=== PATIENT | female | born 1960 | race Caucasian/White ===

== ENCOUNTER 2017-12-15 07:02 | Day surgery (SDC) | payer MEDICAID ==
[~2017-12-15 07:02] MED LIST: Midazolam 1 MG/ML 2 ML SDV ONE; Propofol 200 MG/20 ML SDV ONE; fentaNYL 100 MCG/2 ML SDV ONE
[2017-12-15] MEDS ORDERED: Dextrose 5%-Lactated Ringers 1,000 ML IV SCH (07:30)
[2017-12-15] MEDS ORDERED: Glycopyrrolate 0.2 MG/ML 2 ML SDV IVPUSH ONE (08:30)
[2017-12-15] MEDS ORDERED: Pantoprazole 40 MG Vial IVPUSH ONE (09:50)
--- NOTE | 2017-12-19 11:29 | OR ---
DATE OF PROCEDURE: 12/15/2017 PREOPERATIVE DIAGNOSES: Epigastric pain and heartburn. POSTOPERATIVE DIAGNOSES: Moderate hiatal hernia with active gastroesophageal reflux disease. OPERATIVE PROCEDURE: Esophagogastroduodenoscopy with: 1. Biopsies of esophagogastric junction for histologic evaluation. 2. Biopsies of antrum for CLOtest. ANESTHESIA: IV sedation. INDICATION FOR PROCEDURE: A 57-year-old female presenting with worsening problems with epigastric pain, especially heartburn, waking up sometimes with some bile in the throat and some ill taste. She has had some reflux for several years, but it has become recently quite a bit worse. She is presently on Zantac 300 mg a day. Plan is to proceed with an upper GI endoscopy with biopsies as indicated. Potential risks including bleeding and perforation were discussed, and the patient wishes to proceed. DETAILS OF PROCEDURE: The patient was taken to the operating room and placed in a left lateral decubitus position. IV sedation was administered, after which the upper GI endoscope was passed orally through the length of the esophagus into the stomach with retroflexion view of the fundus; thereafter through the pyloric channel and into the proximal duodenum. Findings included normal hypopharynx, larynx, upper esophageal sphincter, and esophageal body. However at the EG junction, the patient had a moderate-sized hiatal hernia measuring 2 to 3 cm and quite active gastroesophageal reflux disease. There was 1 patchy area that was ulcerated and otherwise the mucosa was quite a bit edematous and friable. There was some upward extension of the gastroesophageal junction mucosal lining consistent with possible Leavitt's esophagus. There was no stricturing or plaquing, or otherwise any evidence of neoplastic change per se. The remainder of the gastric and duodenal exams were unremarkable. At this point, biopsies were obtained from the antrum and sent for CLOtest to establish the patient's H. pylori status. Multiple biopsies from esophagogastric junction were then obtained. Minimal bleeding from the biopsy sites was seen and the procedure then concluded. Plan at this point will be to move the patient to Protonix. We will give her Protonix 40 IV in the recovery room and then 40 mg daily and we will see her back next Tuesday to discuss long-term treatment options. The patient at this age is wanting to avoid the long-term use of PPIs, might be a candidate for surgical antireflux procedure. Jer England MD /[id number]
== END 2017-12-15 10:45 | disposition home or self-care (01) ==
LOC: JP.SDS 07:02
PROVIDERS: ATTEND Surgery
DX: K21.9 Gastro-esophageal reflux disease without esophagitis (principal); K44.9 Diaphragmatic hernia without obstruction or gangrene; Z91.040 Latex allergy status
CPT/HCPCS: 43239; 87081; C9113; J2250; J2704; J3010; J7042; J3490

== ENCOUNTER 2017-12-26 05:57 | Inpatient (IN) | payer MEDICAID ==
[2017-12-26] MEDS ORDERED: Acetaminophen 500 MG Tab PO ONE (06:15)
[2017-12-26] MEDS ORDERED: Dextrose 5%-Lactated Ringers 1,000 ML IV SCH (07:00)
[2017-12-26] MEDS ORDERED: Propofol 200 MG/20 ML SDV ONE (07:07)
[2017-12-26] MEDS ORDERED: Glycopyrrolate 0.2 MG/ML 5 ML MDV ONE (07:07)
[2017-12-26] MEDS ORDERED: fentaNYL 250 MCG/5 ML SDV ONE ×2 (07:07→08:26)
[2017-12-26] MEDS ORDERED: Ondansetron 4 MG/2 ML SDV ONE (07:07)
[2017-12-26] MEDS ORDERED: Rocuronium 50 MG/5 ML Vial ONE (07:07)
[2017-12-26] MEDS ORDERED: Dexamethasone 4 MG/ML SDV ONE (07:07)
[2017-12-26] MEDS ORDERED: Neostigmine Methylsulfate 1 MG/ML 5 ML Syringe ONE (07:07)
[2017-12-26] MEDS ORDERED: Succinylcholine 200 MG/10 ML MDV ONE (07:07)
[2017-12-26] MEDS ORDERED: HYDROmorphone/Normal Saline 15 MG/30 ML PCA IV PRN (07:26)
[2017-12-26] MEDS ORDERED: Naloxone 0.4 MG/ML SDV IV PRN (07:42)
[2017-12-26] MEDS ORDERED: ceFAZolin 2 GM in Premix Bag 1 BAG IV ONE (07:45)
[2017-12-26] MEDS ORDERED: Ketamine 500 MG/5 ML MDV IV SCH (07:45)
[2017-12-26] MEDS ORDERED: Ropivacaine 32 ML, Dexamethasone 8 MG, EPINEPHrine 0.4 MG, Sodium Chloride 0.9% 45.6 ML NERVRT SCH ×4 (07:45)
[2017-12-26] MEDS ORDERED: Lactated Ringers 1,000 ML ONE (08:44)
[2017-12-26] MEDS ORDERED: hydrOXYzine HCl 100 MG/2 ML SDV IM ONE (09:45)
[2017-12-26] MEDS ORDERED: Ondansetron 4 MG/2 ML SDV IVPUSH PRN (10:42)
[2017-12-26] MEDS: Pantoprazole 40 MG Vial IV SCH (11:38)
[2017-12-26] MEDS: Acetaminophen 325 MG Tab PO SCH ×2 (12:22→17:21)
[2017-12-26] MEDS: Metoclopramide 10 MG/2 ML SDV IVPUSH SCH ×2 (12:24→17:22)
[2017-12-26] MEDS: Polyethylene Glycol 3350 Powder 17 GM Packet PO SCH (12:36)
[2017-12-26] MEDS: Docusate Sodium 100 MG Cap PO SCH (12:36)
[2017-12-26] MEDS: Dextrose 5%-Lactated Ringers 1,000 ML IV SCH ×2 (13:27→20:37)
[2017-12-26] MEDS: ceFAZolin 2 GM in Premix Bag 1 BAG IV SCH ×2 (13:27→22:50)
[2017-12-26] MEDS: cycloSPORINE Ophth Drops U/D Box of 30 EYEBOTH SCH (20:43)
[2017-12-27] MEDS: Acetaminophen 325 MG Tab PO SCH ×4 (00:47→17:51)
[2017-12-27] MEDS: Metoclopramide 10 MG/2 ML SDV IVPUSH SCH ×4 (00:48→17:51)
[2017-12-27] MEDS: Polyethylene Glycol 3350 Powder 17 GM Packet PO SCH (08:00)
[2017-12-27] MEDS: Docusate Sodium 100 MG Cap PO SCH (08:00)
[2017-12-27] MEDS: cycloSPORINE Ophth Drops U/D Box of 30 EYEBOTH SCH ×2 (08:00→20:22)
[2017-12-27] MEDS ORDERED: Dextrose 5%-Lactated Ringers 1,000 ML IV SCH (08:00)
[2017-12-27] MEDS: ceFAZolin 2 GM in Premix Bag 1 BAG IV SCH (08:24)
[2017-12-27] MEDS ORDERED: cycloSPORINE Ophth Drops U/D Box of 30 EYEBOTH SCH (09:00)
--- NOTE | 2017-12-27 11:08 | PN ---
DATE OF SERVICE: 12/27/2017 SUBJECTIVE: Cindy is postop day 1 following laparoscopic Abbey fundoplication. Her pain has been controlled. Her activity has been good. She has been up, ambulating. REVIEW OF SYSTEMS: Remainder of review of systems is negative for any pertinent positives and negatives. OBJECTIVE: GENERAL: Cindy Forman is a pleasant 57-year-old female. She is alert, orientated. Color pale. VITAL SIGNS: TPR 97.5, 72, 14, blood pressure 91/48. HEENT: Negative. NECK: Supple. HEART: Regular rate and rhythm. LUNGS: Clear. ABDOMEN: Dressings are dry and intact. Abdominal binder is on. EXTREMITIES: SCDs are on and there is no peripheral edema. ASSESSMENT: Laparoscopic Abbey fundoplication. Jer England MD, 12/27/2017. PLAN: 1. A full liquid diet. 2. Dietary consult. 3. Saline lock IV if oral intake adequate. 4. DC ROCK STAR and continuous pulse ox. 5. Tylenol 650 mg scheduled q.6 hours p.o. 6. Tramadol 50 mg q.4 hours p.r.n. pain by mouth. 7. Decrease IV to 100 mL per hour. 8. Good pulmonary toilet. 9. We will evaluate p.r.n. or in the a.m. Lois Liriano PA-C /[id number]
[2017-12-27] MEDS: Pantoprazole 40 MG Vial IV SCH (11:13)
[2017-12-27] MEDS: traMADol 50 MG Tab PO PRN ×2 (19:02→23:57)
[2017-12-28] MEDS: Metoclopramide 10 MG/2 ML SDV IVPUSH SCH ×2 (00:04→06:23)
[2017-12-28] MEDS: Acetaminophen 325 MG Tab PO SCH ×2 (00:04→06:23)
[2017-12-28] MEDS: cycloSPORINE Ophth Drops U/D Box of 30 EYEBOTH SCH (08:16)
[2017-12-28] MEDS: traMADol 50 MG Tab PO PRN (08:17)
--- NOTE | 2017-12-28 09:03 | DISCH ---
ADMISSION DIAGNOSES: 1. Gastroesophageal reflux disease refractory to medical management. 2. Bilateral dry eyes. 3. Constipation. 4. Fatigue. DISCHARGE DIAGNOSES: Laparoscopic Abbey fundoplication, repair of periesophageal diaphragmatic hernia with mesh for gastroesophageal reflux disease refractory to medical management and periesophageal diaphragmatic hernia. Date of surgery, 12/26/2017. HISTORY: Cindy Forman is a 57-year-old female who has had GERD refractory to medical management. After preoperative evaluation and discussion of possible risks and possible complications, she wished to proceed with surgical procedure. HOSPITAL COURSE: Cindy had her surgery on 12/26/2017. She had no complications. On postop day #1, she was started on a full liquid diet and changed to oral pain medication. On postop day #2, vital signs were stable. Activity was good. Pain was well managed. She received dietary instruction. She was able to be discharged to home. PHYSICAL EXAMINATION: GENERAL: Cindy Forman is a 57-year-old female. VITAL SIGNS: Height is 5 feet 4 inches. Weight is 143 pounds. TPR is 97.6, 72, 16, and blood pressure 114/62. HEENT: Negative. NECK: Supple. HEART: Regular rate and rhythm. LUNGS: Clear. ABDOMEN: Incisions look good. Abdominal binder has been on. EXTREMITIES: Without peripheral edema. DISPOSITION: Discharged to home. CONDITION: Stable and improving. FOLLOWUP APPOINTMENT: With Jer England MD, at [facility] on 01/04/2018 at 8:30 a.m. DISCHARGE MEDICATIONS: Home medications; 1. Tramadol 50 mg q.4 hours p.r.n. pain, #40. 2. Colace 100 mg oral daily. 3. Milk of magnesia 30 mL, two were sent home with the patient to take one daily p.r.n. constipation. 4. Tylenol 650 mg every 6 hours. 5. Leslie-C 500 mg one daily. 6. Calcium carbonate-vitamin D3 one daily. 7. Magnesium oxide 400 mg oral daily. 8. [place]-3 one daily. 9. Protonix 40 mg oral daily. 10.MiraLax 17 grams oral daily. 11.Zantac 150 mg twice daily. 12.Niotaze Jelly 500 mg daily. 13.B complex one daily. 14.Restasis eyedrops, one drop to both eyes twice daily. She was instructed that if the supplements are too large to swallow, that she can hold on those until feeling better or to find chewable. DISCHARGE DIET: Full liquid diet for 1 month until 01/26/2018. Drink 8 to 10 glasses of water a day. ACTIVITY: No lifting greater than 10 pounds for 2 weeks. Walk inside your home at least 6 times daily. Driving, do not drive while on pain medication. Shower/bathing, may shower. DISCHARGE INSTRUCTIONS: Notify provider if fever, nausea, or vomiting. Keep site clean and dry. Wear abdominal binder for 2 weeks and then as tolerated. Use incentive spirometer 10 times every hour while awake.
[2017-12-28] MEDS ORDERED: Magnesium Hydroxide 400 MG/5 ML Susp 30 ML Cup PO ONE (10:00)
[2017-12-28] MEDS: Docusate Sodium 100 MG Cap PO SCH (10:20)
[2017-12-28] MEDS: Polyethylene Glycol 3350 Powder 17 GM Packet PO SCH (10:20)
--- NOTE | 2018-01-03 15:37 | OR ---
DATE OF PROCEDURE: 12/26/2017 PREOPERATIVE DIAGNOSIS: Gastroesophageal reflux disease, refractory to medical management. POSTOPERATIVE DIAGNOSIS: Gastroesophageal reflux disease, refractory to medical management associated with paraesophageal diaphragmatic hernia. OPERATIVE PROCEDURE: Laparoscopic Abbey fundoplication with repair of paraesophageal diaphragmatic hernia with mesh (19956). ANESTHESIA: General. DIRECTOR OF MEDICAL EDUCATION: Lois Liriano PA-C. INDICATION FOR PROCEDURE: This is a 57-year-old female presenting with worsening gastroesophageal reflux disease that has become refractory to medical management. After preop evaluation and discussion, she wished to proceed with a Abbey fundoplication. Potential risks including bleeding, infection, problems with fundoplication complications such as dysphagia, gas bloat syndrome, disorders of gastric emptying rate with relief of reflux symptoms were reviewed, and the patient wishes to proceed. PROCEDURE IN DETAIL: The patient was taken to operating room and placed in a supine position after general endotracheal anesthesia was induced and she was converted to a lithotomy position. Covarrubias catheter was inserted and the abdomen prepped and draped. A 15 cm inferior and 5 cm left of xiphoid process, a transverse incision was made and the peritoneal cavity entered under direct vision with Optiview trocar inflated to 15 mmHg pressure with CO2. Laparoscope was then reinserted. No underlying trocar insertion site injuries were seen. Following this, bilateral subcostal and transverse abdominis plane blocks were placed using standard solution and direct visualization of the needle in the correct plane via the laparoscopic vantage point. Following this, four additional trocars were placed across the upper mid abdomen and general exploration was undertaken. Upon elevation of liver, the patient was noted to have a signfiicant amount of paraesophageal hernia with prolapse of a portion of the omentum, the perigastric fat and gastric fundus in the plane predominantly in the anterior course of the esophagus. This was reduced and the peritoneum overlying the hernia incised and reflected downward. Dissection was then began on the left and right crura and the esophagus from those structures. A retroesophageal window was then established using blunt dissection and a [place] drain placed around the distal esophagus. The attachments of the distal esophagus were then sequentially freed up using Harmonic scalpel and delivery of roughly 4 to 5 cm segment of intraabdominal esophagus was established. A posterior crural repair was then accomplished with 0 Ethibond sutures and reinforced with PTFE pledgets. Musculature at the diaphragmatic area was quite thinned out. Given this, a Phasix ST mesh was placed near posterior to the esophagus over the crural repair and slightly along the side of esophagus and it was fixed in position with some titanium tacking screws. At this point, the omentum was divided away from the greater curvature of stomach with Harmonic scalpel. This dissection then continued up along the short gastric vessels dividing in turn and eventually the highest and posterior short gastric vessels were divided. This allowed a nice mobilization of the gastric fundus. A guidewire was then passed orally through the esophagus and into the stomach. Over this, a 54-Urdu Savary dilator was placed in the distal esophagus. A 3-stitch 2 cm fundoplication was then accomplished using 0 Ethibond sutures reinforced with PTFE pledgets. Each of the fundoplication sutures included bites of the underlying esophagus to help fix in position. Apparently, 2 sutures between the top of the fundoplication, one on the left and on the right side through the overlying diaphragm were placed with the same stitch pledget combination to help prevent slippage of the fundoplication. At that point, no further problems were noted. The dilator and wire were removed, and fundoplication was inspected and found to be satisfactory, floppy. No complications were evident. At this point, the trocars removed, peritoneal cavity deflated. The fascia at the 12 mm site was closed with 0 Vicryl stitch and the skin at each incision with a 4-0 Vicryl skin stitch. Dressing applied. The patient was taken to the recovery room in satisfactory condition. Physician assistant child care teacher, Lois Liriano PA-C, played an essential role in assisting in this case, helping to position patient, retract structures as needed, as well as suturing and cutting sutures when indicated. Her presence improved patient's safety and decreased operative time. Jer England MD /[id number]
== END 2017-12-28 10:25 | disposition home or self-care (01) | DRG 328 ==
LOC: JP.SDS 05:57 → JP.MS 05:57 → JP.2SS 09:00 → EDSTATUS 10:45
PROVIDERS: ADMIT Surgery; ATTEND Surgery
PROC: 0DV44ZZ Restriction of Esophagogastric Junction, Percutaneous Endoscopic Approach (ICD-10-PCS; principal; 2017-12-26)
PROC: 0BUT4JZ Supplement Diaphragm with Synthetic Substitute, Percutaneous Endoscopic Approach (ICD-10-PCS; 2017-12-26)
PROC: 8E0W4CZ Robotic Assisted Procedure of Trunk Region, Percutaneous Endoscopic Approach (ICD-10-PCS; 2017-12-26)
DX: K21.9 Gastro-esophageal reflux disease without esophagitis (principal); H04.123 Dry eye syndrome of bilateral lacrimal glands; K44.9 Diaphragmatic hernia without obstruction or gangrene; K58.9 Irritable bowel syndrome, unspecified; K59.09 Other constipation; Z79.899 Other long term (current) drug therapy
CPT/HCPCS: 81025; 94762; A9270-GY; C1781; C9113; J0171; J0330; J0690; J1100; J1170; J2405; J2704; J2710; J2765; J2795; J3010; J3410; J7042; J7050; J7120

== ENCOUNTER → 2019-01-24 | Outpatient (CLI) | payer MEDICAID | LOC: JP.MAM 13:28 | PROVIDERS: ATTEND Family Medicine | DX: Z53.8 Procedure and treatment not carried out for other reasons (principal) ==

== ENCOUNTER 2020-12-17 20:02 | Emergency (ER) | payer MEDICAID ==
--- NOTE | 2020-12-17 21:18 | EDM.PDOC ---
ED HPI GENERAL MEDICAL PROBLEM - General Chief Complaint: Genitourinary Problem Stated Complaint: PAINFUL URINATION Time Seen by Provider: 12/17/20 21:18 Source of Information: Reports: Patient History Limitations: Reports: No Limitations - History of Present Illness INITIAL COMMENTS - FREE TEXT/NARRATIVE: Patient reports 2 days of UTI symptoms--yesterday started with pelvic cramping, today felt somewhat better initially then started having urinary frequency, pain/burning, hesitation, incomplete emptying, blood on tissue when wiping. Some chills but otherwise no further symptoms of concern. She is asking for diflucan prescription in addition to ABX for UTI due to concern about getting yeast infection PMH--dry eyes Meds--restasis, MVI Allergy--latex Tob--denies EtOH--rare glass of wine Drugs--denies Onset Date: 12/16/20 Pelvic Pain Score (Numeric/FACES): 3 - Related Data Allergies Allergy/AdvReac Type Severity Reaction Status Date / Time latex Allergy Rash Verified 12/17/20 20:37 Home Meds: Home Meds Ascorbate Calcium/Bioflavonoid [Leslie-C 500 MG] 1 each PO DAILY 12/14/17 [History] [place]-3S/DHA/Epa/Fish Oil [[place]-3 Fish Oil 1,200 mg Sfgl] 1 each PO DAILY 12/14/17 [History] Vitamin B Complex [B Complex] 1 each PO DAILY 12/14/17 [History] cycloSPORINE [Restasis] 1 drop EYEBOTH BID 12/14/17 [History] Acetaminophen [Tylenol] 650 mg PO Q6H tablet 12/28/17 [Rx] Docusate Sodium [Colace] 100 mg PO DAILY #100 cap 12/28/17 [Rx] Past Medical History HEENT History: Reports: Impaired Vision Gastrointestinal History: Reports: Hiatal Hernia, Other (See Below) Other Gastrointestinal History: heart burn 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: Musculoskeletal History: Reports: Fracture Other Musculoskeletal History: clavical - Infectious Disease History Infectious Disease History: Reports: Chicken Pox - Past Surgical History GI Surgical History: Reports: Colonoscopy Musculoskeletal Surgical History: Reports: None, Arthroscopic Knee, Shoulder Surgery Social & Family History - Family History Family Medical History: No Pertinent Family History - Tobacco Use Tobacco Use Status *Q: Never Tobacco User Second Hand Smoke Exposure: No - Caffeine Use Caffeine Use: Reports: Coffee - Alcohol Use Number of Drinks Per Day: 2 - Recreational Drug Use Recreational Drug Use: No ED ROS GENERAL - Review of Systems Review Of Systems: See Below Constitutional: Reports: Chills HEENT: Reports: No Symptoms Respiratory: Reports: No Symptoms Cardiovascular: Reports: No Symptoms Endocrine: Reports: No Symptoms GI/Abdominal: Reports: No Symptoms : Reports: Dysuria, Frequency, Hematuria, Pain, Urgency Musculoskeletal: Reports: No Symptoms Skin: Reports: No Symptoms Neurological: Reports: No Symptoms Psychiatric: Reports: No Symptoms Hematologic/Lymphatic: Reports: No Symptoms Immunologic: Reports: No Symptoms ED EXAM, RENAL/ - Physical Exam Exam: See Below Exam Limited By: No Limitations General Appearance: Alert, WD/WN, No Apparent Distress Eye Exam: Bilateral Eye: EOMI, Normal Inspection, PERRL Ears: Normal External Exam Nose: Normal Inspection Throat/Mouth: Normal Inspection, Normal Lips, Normal Voice, No Airway Compromise Head: Atraumatic, Normocephalic Neck: Normal Inspection, Supple, Full Range of Motion Respiratory/Chest: No Respiratory Distress, Lungs Clear, Normal Breath Sounds Cardiovascular: Normal Peripheral Pulses, Regular Rate, Rhythm, No Edema, No Murmur GI/Abdominal: Normal Bowel Sounds, Soft, Tender (suprapubic tenderness--mild). No: Guarding, Rigid, Rebound (Female) Exam: Deferred Rectal (Female) Exam: Deferred Back Exam: Normal Inspection. No: CVA Tenderness (R), CVA Tenderness (L) Extremities: Normal Inspection, Normal Range of Motion, No Pedal Edema, Normal Capillary Refill Neurological: Alert, Oriented, Normal Cognition, No Motor/Sensory Deficits Psychiatric: Normal Affect, Normal Mood Skin Exam: Warm, Dry, Intact, Normal Color Course - Vital Signs Text/Narrative:: 5--d/w patient home care of UTI to include ABX/macrobid and pyridium for bladder spasm, use of probiotics and/or yogurt to help prevent yeast infection, use of OTC vaginal yeast product (recommend 7-day treatment only if symptoms ar ise), increase fluids--water/juice/sports drinks of choice. urine culture will be completed in 2 days--will only be notified by us if need to change type of ABX. verbalized understanding/agreement with plan of care Last Recorded V/S: Last Vital Signs Temp 97.9 F 12/17/20 20:36 Pulse 75 12/17/20 20:36 Resp 18 12/17/20 20:36 BP 120/76 12/17/20 20:36 Pulse Ox 96 12/17/20 20:36 - Orders/Labs/Meds Orders: Active Orders 24 hr Category Date Time Status CULTURE URINE [RM] Stat Lab 12/17/20 21:32 Ordered Labs: Laboratory Tests 12/17/20 Range/Units 20:18 Urine Color Yellow (YELLOW) Urine Appearance Cloudy A (CLEAR) Urine pH 6.0 (5.0-8.0) Ur Specific [place] 1.020 (1.008-1.030) Urine Protein 100 H (NEGATIVE) mg/dL Urine Glucose (UA) Negative (NEGATIVE) mg/dL Urine Ketones Negative (NEGATIVE) mg/dL Urine Occult Blood Large H (NEGATIVE) Urine Nitrite Negative (NEGATIVE) Urine Bilirubin Negative (NEGATIVE) Urine Urobilinogen 0.2 (0.2-1.0) EU/dL Ur Leukocyte Esterase Large H (NEGATIVE) Urine RBC Packed H (0-5) Urine WBC Packed H (0-5) Ur Epithelial Cells Few Amorphous Sediment Not seen Urine Bacteria Many Urine Mucus Not seen Departure - Departure Time of Disposition: 21:38 Disposition: Home, Self-Care 01 Condition: Good Clinical Impression: UTI, Urinary tract infectious disease - Discharge Information *PRESCRIPTION DRUG MONITORING PROGRAM REVIEWED*: No *COPY OF PRESCRIPTION DRUG MONITORING REPORT IN PATIENT RAJESH: No Instructions: Urinary Tract Infection, Adult, [id number] Referrals: Rosie Wright DO [Primary Care Provider] - Forms: ED Department Discharge Additional Instructions: As recommended you have been given a prescription for antibiotic--Macrobid (nitrofurantoin) as well as Pyridium (phenazopyridine) for bladder spasms Ensure you are drinking plenty of fluids--water/juice/sports drinks of choice--avoid excessive caffienate products; cranberry juice cocktail as little cranberry juice and is not recommended due to its high sugar content--you may consider cranberry tablets Diflucan (fluconazole) is not recommended as primary treatment for yeast infection due to potential side effects/systemic medication--first line therapy is topical antifungal creams as now available over the counter such as Gyne-Lotrimin 7 day or Monostat-7--it is my recommendation that you use this only if you start having vaginal irritation/thick whitish vaginal discharge. You can not prevent a vaginal yeast infection by taking this before symptoms occur. You are likely to find that Macrobid (nitrofurantoin) does not cause a yeast infection as this medication acts specifically on the bladder not the intestines Sepsis Event Note (ED) - Evaluation Sepsis Screening Result: No Definite Risk - Focused Exam Vital Signs: Vital Signs Temp Pulse Resp BP Pulse Ox 12/17/20 20:36 97.9 F 75 18 120/76 96 12/17/20 20:25 97.9 F 75 18 120/76 96 - My Orders Last 24 Hours: My Active Orders 12/17/20 21:32 CULTURE URINE [RM] Stat - Assessment/Plan Last 24 Hours: My Active Orders 12/17/20 21:32 CULTURE URINE [RM] Stat
== END 2020-12-17 21:53 | disposition home or self-care (01) ==
LOC: JP.ED 20:02
DX: N39.0 Urinary tract infection, site not specified (principal); Z91.040 Latex allergy status
CPT/HCPCS: 81001; 87086; 87088; 87186; 99283; 99284

== ENCOUNTER 2022-09-27 09:24 | Emergency (ER) | payer MEDICAID ==
[2022-09-27] MEDS ORDERED: Magnesium Oxide 400 MG Tab PO ONE (10:46)
[2022-09-27 10:48] LABS: TROPONIN I HIGH SENSITIVITY 6.1 pg/mL (<=60.3)
== END 2022-09-27 11:09 | disposition home or self-care (01) ==
LOC: JP.ED 09:24
DX: R00.2 Palpitations (principal); F15.20 Other stimulant dependence, uncomplicated; E83.42 Hypomagnesemia; Z91.040 Latex allergy status
CPT/HCPCS: 36415; 80048; 83735; 83880; 84443; 84484; 85025; 85379; 93005; 99285; A9270